=== PATIENT | female | born 1975 | race Caucasian/White ===

== ENCOUNTER 2016-07-04 22:20 | Emergency (ER) | payer OTHER ==
[~2016-07-04] VITALS: Ht 157.5 cm; Wt 69.0 kg
[~2016-07-04 22:20] MED LIST: IBUP-1542 PO; NITR-58 PO; PREN-39 PO
[2016-07-04 22:27] VITALS: Ht 157.5 cm; Wt 69.0 kg
--- NOTE | 2016-07-04 23:54 | ERD ---
ER Documentation Chief Complaint Date/Time DATE: 07/04/16 TIME: 23:52 Chief Complaint sore throat x 3 weeks, HPI 41-year-old female presents here in emergency department for complaints of throat discomfort for 3 weeks. Patient described the pain as sharp pain, 6/10 scale, is worse upon swallowing. Patient felt some difficulty swallowing at times about the pain. Patient denies swallowing any foreign body. Patient denies any stridor ROS All systems reviewed and are negative except as per history of present illness. Medications Home Meds Active Scripts Ibuprofen* (Ibuprofen*) 600 Mg Tablet, 600 MG PO Q6H Y for PAIN, #30 TAB Prov:NELLIE MCCRARY NP 02/23/15 Nitrofurantoin Monohyd Macrocr* (Macrobid*) 100 Mg Capsr, 100 MG PO BID for 7 Days, CAP Prov:DEQUAN DE LA GARZA PA-C 02/21/15 Reported Medications Vits W-Ca,Fe,Fa(<1MG) ( Vitamins) 1 Tab Tablet, PO DAILY 09/23/10 Allergies Allergies: Coded Allergies: No Known Allergy (Verified Allergy, Unknown, 12/22/08) PMhx/Soc Medical and Surgical Hx: pt denies Medical Hx, pt denies Surgical Hx History of Surgery: No Anesthesia Reaction: No Hx Neurological Disorder: No Hx Respiratory Disorders: No Hx Cardiac Disorders: No Hx Psychiatric Problems: No Hx Miscellaneous Medical Probl: No Hx Alcohol Use: No Hx Substance Use: No Hx Tobacco Use: No Smoking Status: Never smoker FmHx Family History: No coronary disease, No diabetes, No other Physical Exam Vitals Vital Signs Date Time Temp Pulse Resp B/P Pulse Ox O2 Delivery O2 Flow Rate FiO2 07/04/16 22:27 99.4 93 20 112/63 100 Physical Exam GENERAL: The patient is well developed and appropriate for usual state of health, in no apparent distress. HEENT: Atraumatic. Ears: Normal tympanic membrane, no erythema or bulging. No ear canal swelling. No ear discharge. Nose: normal nasal turbinates, no erythema or swelling. Normal nasal discharge. Throat: oropharynx erythematous, no tonsillar swelling or tonsillar exudates no. No lymphadenopathy. CHEST: Clear to auscultation bilaterally. There are no rales, wheezes or rhonchi. HEART: Regular rate and rhythm. No murmurs, clicks, rubs or gallops. No S3 or S4. ABDOMEN: Soft, nontender and nondistended. Good bowel sounds. No rebound or guarding. No gross peritonitis. No gross organomegaly or masses. No Noland sign or McBurney point tenderness. BACK: No midline or flank tenderness. EXTREMITIES: Equal pulses bilaterally. There is no peripheral clubbing, cyanosis or edema. No focal swelling or erythema. Full range of motion. Grossly neurovascularly intact. NEURO: Alert and oriented. Cranial nerves 2-12 intact. Motor strength in all 4 extremities with 5/5 strength. Sensation grossly intact. Normal speech and gait. SKIN: There is no apparent rash or petechia. The skin is warm and dry. HEMATOLOGIC AND LYMPHATIC: There is no evidence of excessive bruising or lymphedema. No gross cervical, axillary, or inguinal lymphadenopathy. Results 24 hrs PROCEDURE: Soft tissue neck. CLINICAL INDICATION: Throat discomfort. TECHNIQUE: Two views including AP and lateral views of the soft tissue neck were obtained. COMPARISON: None. FINDINGS: The airways are patent. The epiglottis is not enlarged. Prevertebral soft tissues are within normal limits. There is no radiopaque foreign body or abnormal calcification identified. Osseous structures are unremarkable. IMPRESSION: Unremarkable soft tissue neck. .Edilberto Barclay MD, MD Date Time Electronically viewed and signed by .Edilberto Barclay MD, MD on 07/05/2016 01:20 .T/ CC: NELLIE MCCRARY DENTAL EQUIPMENT REPAIRER Procedures/MDM Medical decision making: Patient symptoms is likely consistent with acute bacterial pharyngitis, most likely strep throat. Low suspicion for peritonsillar abscess, mononucleosis, no symptoms of epiglottitis, laryngitis. X -ray does not show any oral airway obstruction. No oral airway obstruction noted. No symptoms of sepsis at this time. Patient appears well and is hemodynamically stable. Patient was given for amoxicillin, ibuprofen, is advised to follow-up with primary care doctor in 2-3 days for reevaluation of symptoms. Patient is advised to do salt water gargles. Patient is advised to return to emergency department for worsening symptoms. Disposition: Home. Stable. Departure Diagnosis: Primary Impression: Acute bacterial pharyngitis Condition: Stable Patient Instructions: Pharyngitis, Strep (Presumed) NELLIE MCCRARY NP July 04, 2016 23:54
--- NOTE | 2016-07-05 01:20 | RADRPT ---
PROCEDURE: Soft tissue neck. CLINICAL INDICATION: Throat discomfort. TECHNIQUE: Two views including AP and lateral views of the soft tissue neck were obtained. COMPARISON: None. FINDINGS: The airways are patent. The epiglottis is not enlarged. Prevertebral soft tissues are within alonzo l limits. There is no radiopaque foreign body or abnormal calcification identified. Osseous struct ures are unremarkable. IMPRESSION: Unremarkable soft tissue neck. .Edilberto Barclay MD, MD Date Time Electronically viewed and signed by .Edilberto Barclay MD, on 07/05/2016 01:20 .T/
[2016-07-05] MEDS ORDERED: IBUP-1542 PO (01:49)
[2016-07-05] MEDS ORDERED: AMO500 PO (01:49)
== END 2016-07-05 01:58 | disposition home or self-care (01) ==
LOC: FTE 22:20
DX: J02.9 Acute pharyngitis, unspecified (principal)
CPT/HCPCS: 70360

== ENCOUNTER 2016-07-08 19:41 | Emergency (ER) | payer OTHER ==
[~2016-07-08] VITALS: Wt 69.0 kg
[~2016-07-08 19:41] MED LIST changes: +AMO500 PO
--- NOTE | 2016-07-08 20:25 | ERA ---
ER Documentation Chief Complaint Date/Time DATE: 07/08/16 TIME: 20:24 Chief Complaint SORE THROAT AND DIFFICULTY SWALLOWING, NOT BETTER WITH ABX HPI The patient is a 41-year-old female, presenting with sore throat for more than 2 weeks. She was seen in the ER about 4 days ago and treated with amoxicillin and Motrin for pharyngitis. She is not getting better and requests pain medication. She denies fever, has intermittent cough, denies neck pain, chest pain, dyspnea, abdominal pain, vomiting, dysuria, diarrhea. She does not smoke nor drink Past medical/surgical history: None ROS All systems reviewed and are negative except as per history of present illness. Medications Home Meds Active Scripts Guaifenesin-Codeine Phosphate* (Robitussin* AC) 5 Ml Syrup, 10 ML PO Q6H Y for COUGH, #120 ML Prov:HORACIO PERDUE MD 07/08/16 Amoxicillin* (Amoxicillin*) 500 Mg Cap, 500 MG PO TID for 10 Days, CAP Prov:NELLIE MCCRARY NP 07/05/16 Ibuprofen* (Motrin*) 600 Mg Tab, 600 MG PO Q6H Y for PAIN AND OR ELEVATED TEMP, #30 TAB Prov:NELLIE MCCRARY NP 07/05/16 Ibuprofen* (Ibuprofen*) 600 Mg Tablet, 600 MG PO Q6H Y for PAIN, #30 TAB Prov:NELLIE MCCRARY NP 02/23/15 Nitrofurantoin Monohyd Macrocr* (Macrobid*) 100 Mg Capsr, 100 MG PO BID for 7 Days, CAP Prov:DEQUAN DE LA GARZA PA-C 02/21/15 Reported Medications Vits W-Ca,Fe,Fa(<1MG) ( Vitamins) 1 Tab Tablet, PO DAILY 09/23/10 Allergies Allergies: Coded Allergies: No Known Allergy (Verified Allergy, Unknown, 12/22/08) PMhx/Soc Medical and Surgical Hx: pt denies Medical Hx, pt denies Surgical Hx History of Surgery: No Anesthesia Reaction: No Hx Neurological Disorder: No Hx Respiratory Disorders: No Hx Cardiac Disorders: No Hx Psychiatric Problems: No Hx Miscellaneous Medical Probl: No Hx Alcohol Use: No Hx Substance Use: No Hx Tobacco Use: No Smoking Status: Never smoker Physical Exam Vitals Vital Signs Date Time Temp Pulse Resp B/P Pulse Ox O2 Delivery O2 Flow Rate FiO2 07/08/16 19:50 99.3 65 20 115/56 99 Physical Exam Const: No acute distress. Head: Atraumatic. Eyes: Normal Conjunctiva. ENT: Normal External Ears, Nose and Mouth. Oropharynx is within normal limits, no exudate Neck: Full range of motion. No meningismus. Resp: Clear to auscultation bilaterally. Cardio: Regular rate and rhythm, no murmurs. Abd: Soft, non distended, normal bowel sounds, non tender. Skin: No petechiae or rashes. Back: No midline or flank tenderness. Ext: No cyanosis, or edema. Neur: Awake and alert. No focal deficit Psych: Normal Mood and Affect. Procedures/MDM MEDICAL MAKING DECISION: The patient is a 41-year-old female, presenting with acute pharyngitis. She remains well emergency department. The differential diagnoses considered include but are not limited to The differential diagnoses considered include but are not limited to cellulitis, abscess Departure Diagnosis: Primary Impression: Pharyngitis Condition: Good Comments She was discharged with Marely ARCOS I discussed the findings with the patient. I advised the patient to follow-up with the primary physician in about 1-2 days, sooner if needed and return if any concern. HORACIO PERDUE MD July 08, 2016 20:25
[2016-07-08] MEDS ORDERED: UDROBAC PO (20:47)
== END 2016-07-08 20:50 | disposition home or self-care (01) ==
LOC: E/R 19:41
DX: J02.9 Acute pharyngitis, unspecified (principal)
CPT/HCPCS: 99283

== ENCOUNTER 2016-07-17 19:14 | Emergency (ER) | payer OTHER ==
[~2016-07-17] VITALS: Ht 157.5 cm; Wt 62.0 kg
[~2016-07-17 19:14] MED LIST changes: +UDROBAC PO
[2016-07-17 19:58] VITALS: Ht 157.5 cm; Wt 62.0 kg
[2016-07-17] MEDS ORDERED: OMEP20CA16 PO (20:26)
[2016-07-17] MEDS ORDERED: MAG-19 PO (20:26)
--- NOTE | 2016-07-17 20:27 | ERD ---
ER Documentation Chief Complaint Date/Time DATE: 07/17/16 TIME: 20:[address] X2 WEEKS STATES UNABLE TO EAT. HPI 41-year-old female presents to emergency department for complaints of throat discomfort for 2 weeks now, patient has been having this problem chronically, patient was seen by different providers also already given antibiotics, high radiology exam none for further evaluation. Patient continues to have discomfort in the throat. Patient denies any fever or chills. Patient denies any stridor. Patient continues take ibuprofen for pain, describes the pain as burning pain 4/10 scale, and is mildly better after taking ibuprofen. ROS All systems reviewed and are negative except as per history of present illness. Medications Home Meds Active Scripts Omeprazole* (Omeprazole*) 20 Mg Capsule.dr, 20 MG PO DAILY, #30 Prov:NELLIE MCCRARY NP 07/17/16 Magaldrate/Simethicone* (Mylanta*) 355 Ml Susp, 30 ML PO QID Y for GASTROINTESTINAL UPSET, #1 BOTTLE Prov:NELLIE MCCRARY NP 07/17/16 Guaifenesin-Codeine Phosphate* (Robitussin* AC) 5 Ml Syrup, 10 ML PO Q6H Y for COUGH, #120 ML Prov:HORACIO PERDUE MD 07/08/16 Amoxicillin* (Amoxicillin*) 500 Mg Cap, 500 MG PO TID for 10 Days, CAP Prov:NELLIE MCCRARY NP 07/05/16 Ibuprofen* (Motrin*) 600 Mg Tab, 600 MG PO Q6H Y for PAIN AND OR ELEVATED TEMP, #30 TAB Prov:NELLIE MCCRARY NP 07/05/16 Ibuprofen* (Ibuprofen*) 600 Mg Tablet, 600 MG PO Q6H Y for PAIN, #30 TAB Prov:NELLIE MCCRARY NP 02/23/15 Nitrofurantoin Monohyd Macrocr* (Macrobid*) 100 Mg Capsr, 100 MG PO BID for 7 Days, CAP Prov:DEQUAN DE LA GARZA PA-C 02/21/15 Reported Medications Vits W-Ca,Fe,Fa(<1MG) ( Vitamins) 1 Tab Tablet, PO DAILY 09/23/10 Allergies Allergies: Coded Allergies: No Known Allergy (Verified , 07/17/16) PMhx/Soc Medical and Surgical Hx: pt denies Medical Hx, pt denies Surgical Hx History of Surgery: No Anesthesia Reaction: No Hx Neurological Disorder: No Hx Respiratory Disorders: No Hx Cardiac Disorders: No Hx Psychiatric Problems: No Hx Miscellaneous Medical Probl: No Hx Alcohol Use: No Hx Substance Use: No Hx Tobacco Use: No FmHx Family History: No coronary disease, No diabetes, No other Physical Exam Vitals Vital Signs Date Time Temp Pulse Resp B/P Pulse Ox O2 Delivery O2 Flow Rate FiO2 07/17/16 19:58 98.0 96 20 122/71 99 Physical Exam GENERAL: The patient is well developed and appropriate for usual state of health, in no apparent distress. CHEST: Clear to auscultation bilaterally. There are no rales, wheezes or rhonchi. HEART: Regular rate and rhythm. No murmurs, clicks, rubs or gallops. No S3 or S4. ABDOMEN: Soft, nontender and nondistended. Good bowel sounds. No rebound or guarding. No gross peritonitis. No gross organomegaly or masses. No Noland sign or McBurney point tenderness. BACK: No midline or flank tenderness. EXTREMITIES: Equal pulses bilaterally. There is no peripheral clubbing, cyanosis or edema. No focal swelling or erythema. Full range of motion. Grossly neurovascularly intact. NEURO: Alert and oriented. Cranial nerves 2-12 intact. Motor strength in all 4 extremities with 5/5 strength. Sensation grossly intact. Normal speech and gait. SKIN: There is no apparent rash or petechia. The skin is warm and dry. HEMATOLOGIC AND LYMPHATIC: There is no evidence of excessive bruising or lymphedema. No gross cervical, axillary, or inguinal lymphadenopathy. Results 24 hrs PROCEDURE: Soft tissue neck. CLINICAL INDICATION: Throat discomfort. TECHNIQUE: Two views including AP and lateral views of the soft tissue neck were obtained. COMPARISON: None. FINDINGS: The airways are patent. The epiglottis is not enlarged. Prevertebral soft tissues are within normal limits. There is no radiopaque foreign body or abnormal calcification identified. Osseous structures are unremarkable. IMPRESSION: Unremarkable soft tissue neck. .Edilberto Barclay, MD, MD Date Time Electronically viewed and signed by .Edilberto Barclay MD, MD on 07/05/2016 01:20 .T/ CC: NELLIE MCCRARY NP Procedures/MDM Medical decision making: Patient symptoms are nonspecific at this time, further evaluation with EGD by ENT specialist or GI specialist for further evaluation is necessary. Low suspicion for peritonsillar abscess, mononucleosis, no symptoms of epiglottitis, laryngitis. No oral airway obstruction noted. No symptoms of sepsis at this time. Patient appears well and is hemodynamically stable. Patient was given for Mylanta and omeprazole, is advised to follow-up with primary care doctor in 2-3 days for reevaluation of symptoms. Patient is advised to do salt water gargles. Patient is advised to return to emergency department for worsening symptoms. Disposition: Home. Stable. Departure Diagnosis: Primary Impression: Throat discomfort Condition: Stable Patient Instructions: Self-Care for Sore Throats Additional Instructions: see ENT specialist / GI for possible endoscopy for further evaluation of throat NELLIE MCCRARY NP Jul 17, 2016 20:27
== END 2016-07-17 21:06 | disposition home or self-care (01) ==
LOC: E/R 19:14
DX: R07.0 Pain in throat (principal)
CPT/HCPCS: 99283

== ENCOUNTER 2016-07-23 16:06 | Emergency (ER) | payer OTHER ==
[~2016-07-23] VITALS: Ht 154.9 cm; Wt 60.0 kg
[~2016-07-23 16:06] MED LIST changes: +MAG-19 PO; +OMEP20CA16 PO
[2016-07-23 16:08] VITALS: Ht 154.9 cm; Wt 60.0 kg
[2016-07-23 16:40] LABS: URINE BLOOD (Dip) POC 1+ (NEGATIVE)
--- NOTE | 2016-07-23 17:50 | RADRPT ---
PROCEDURE: Retroperitoneal US. CLINICAL INDICATION: Flank pain TECHNIQUE: Multiple sonographic images of the kidneys and retroperitoneum were obtained. The imag es were reviewed on a PACS workstation. COMPARISON: No prior studies are available for comparison. FINDINGS: The kidneys are normal in size, contour, cortical thickness and cortical echogenicity. The right kidney measures 9.5 cm. The left kidney measures 10.5 cm. No kidney stones are visualized. There is no evidence for hydronephrosis. The urinary bladder is decompressed and not well seen. RPTAT: AA IMPRESSION: Unremarkable retroperitoneal ultrasound. .Alan Beasley MD, Date Time Electronically viewed and signed by .Alan Beasley MD, on 07/23/2016 17:50 .S/
--- NOTE | 2016-07-23 18:05 | RADRPT ---
PROCEDURE: US Pelvis. CLINICAL INDICATION: Pelvic pain TECHNIQUE: Multiple sonographic images of the pelvis were obtained utilizing a transabdominal and endovaginal technique. The images were reviewed on a PACS workstation. COMPARISON: February 23, 2015, February 21, 2015, February 19, 2015 FINDINGS: The uterus is anteverted and measures 7.6 x 5 x 4.0 cm. The endometrial echo complex is normal and m easures 6 mm. No uterine fibroids are present. There is no evidence for free fluid. The ovaries were not visualized. No adnexal masses are noted. IMPRESSION: Unremarkable pelvic ultrasound. RPTAT: EE .Sharla Su MD, MD Date Time Electronically viewed and signed by .Sharla Su MD, MD on 07/23/2016 18:05 .F/
[2016-07-23] MEDS ORDERED: ELEC100080 PO (18:42)
[2016-07-23] MEDS ORDERED: IBUP-1542 PO (18:42)
[2016-07-23 18:54] VITALS: BP 106/65; PULSE 98; RESP 16; TEMP 98.1
--- NOTE | 2016-07-23 19:11 | ERD ---
ER Documentation Chief Complaint Date/Time DATE: 07/23/16 TIME: 18:53 Chief Complaint Complains of abdominal pain x 3 days HPI 41-year-old female complaining of pelvic pain 3-4 days. Patient reports diarrhea today. She had 6 episodes of nonbloody diarrhea, last episode was 1 hour ago. She also has dysuria. She had UTIs in the past, and states that this feels the same as prior UTI. Denies fever or chills. Denies vomiting. Denies cough or runny nose. Patient also complains of sore throat for last 3 weeks. She has severe multiple times for the sore throat. She states the pain is deep down in the throat. She is to have trouble eating any solid food. ROS All systems reviewed and are negative except as per history of present illness. Medications Home Meds Active Scripts Electrolyte,Oral (Pedialyte) 1,000 Ml Solution, 100 ML PO Q6 Y for DIARRHEA, # 1000 ML Prov:KRISHAN RECINOS NP 07/23/16 Ibuprofen* (Motrin*) 600 Mg Tab, 600 MG PO Q6H Y for PAIN AND OR ELEVATED TEMP, #30 TAB Prov:KRISHAN RECINOS NP 07/23/16 Omeprazole* (Omeprazole*) 20 Mg Capsule.dr, 20 MG PO DAILY, #30 Prov:NELLIE MCCRARY NP 07/17/16 Magaldrate/Simethicone* (Mylanta*) 355 Ml Susp, 30 ML PO QID Y for GASTROINTESTINAL UPSET, #1 BOTTLE Prov:NELLIE MCCRARY NP 07/17/16 Guaifenesin-Codeine Phosphate* (Robitussin* AC) 5 Ml Syrup, 10 ML PO Q6H Y for COUGH, #120 ML Prov:HORACIO PERDUE MD 07/08/16 Amoxicillin* (Amoxicillin*) 500 Mg Cap, 500 MG PO TID for 10 Days, CAP Prov:NELLIE MCCRARY NP 07/05/16 Ibuprofen* (Motrin*) 600 Mg Tab, 600 MG PO Q6H Y for PAIN AND OR ELEVATED TEMP, #30 TAB Prov:NELLIE MCCRARY NP 07/05/16 Ibuprofen* (Ibuprofen*) 600 Mg Tablet, 600 MG PO Q6H Y for PAIN, #30 TAB Prov:HUMBERTONELLIE RAMIREZ JACE PaulaAdrian ORGANIZATIONAL PSYCHOLOGIST 02/23/15 Nitrofurantoin Monohyd Macrocr* (Macrobid*) 100 Mg Capsr, 100 MG PO BID for 7 Days, CAP Prov:DEQUAN DE LA GARZA PA-C 02/21/15 Reported Medications Vits W-Ca,Fe,Fa(<1MG) ( Vitamins) 1 Tab Tablet, PO DAILY 09/23/10 Allergies Allergies: Coded Allergies: No Known Allergy (Verified , 07/23/16) PMhx/Soc Medical and Surgical Hx: pt denies Medical Hx History of Surgery: No Anesthesia Reaction: No Hx Neurological Disorder: No Hx Respiratory Disorders: No Hx Cardiac Disorders: No Hx Psychiatric Problems: No Hx Miscellaneous Medical Probl: No Hx Alcohol Use: No Hx Substance Use: No Hx Tobacco Use: No Smoking Status: Unknown if ever smoked Physical Exam Vitals Vital Signs Date Time Temp Pulse Resp B/P Pulse Ox O2 Delivery O2 Flow Rate FiO2 07/23/16 16:08 99.4 122 20 109/57 99 Physical Exam General: Well-developed, well-nourished, conscious and coherent, in no distress Skin: Warm and dry without rash, good texture and turgor Head: Normocephalic without evidence of trauma Eyes: Sclera and conjunctivae normal; pupils equal, round, and reactive to light; extraocular movements are intact Ears: Canals are patent. Tympanic membranes are clear Nose/Face: Without rhinorrhea Mouth/throat: Mucous membranes are moist. Posterior pharynx clear without erythema or exudates Neck: Supple without meningismus or adenopathy. Carotids are equal. Trachea midline. No bruits or JVD Chest: Normal AP diameter. Good expansion without retractions. Nontender. Lungs are clear to auscultate bilaterally with good tidal volume Heart: Regular rate and rhythm. No murmur, rub, or gallops heard Abdomen: Soft and nontender without masses, guarding, or rebound. Bowel sounds are active. No hepatosplenomegaly Back: Without spinal or CVA tenderness Pelvis: Suprapubic tenderness Extremities: Full range of motion. Good strength bilaterally. No clubbing, cyanosis, or edema. Peripheral pulses are intact. Sensation intact Neuro: Alert and oriented 4, GCS 15. Cranial nerves grossly intact. Motor and sensory exams nonfocal. Moves all extremities. Speech clear. Gait normal Results 24 hrs Laboratory Tests Test 07/23/16 16:44 Bedside Urine pH (LAB) 6.0 Bedside Urine Protein (LAB) 3+ Bedside Urine Glucose (UA) Negative Bedside Urine Ketones (LAB) 4+ Bedside Urine Blood 1+ Bedside Urine Nitrite (LAB) Negative Bedside Urine Leukocyte Esterase (L Negative PROCEDURE: US Pelvis. CLINICAL INDICATION: Pelvic pain TECHNIQUE: Multiple sonographic images of the pelvis were obtained utilizing a transabdominal and endovaginal technique. The images were reviewed on a PACS workstation. COMPARISON: February 23, 2015, February 21, 2015, February 19, 2015 FINDINGS: The uterus is anteverted and measures 7.6 x 5 x 4.0 cm. The endometrial echo complex is normal and measures 6 mm. No uterine fibroids are present. There is no evidence for free fluid. The ovaries were not visualized. No adnexal masses are noted. IMPRESSION: Unremarkable pelvic ultrasound. RPTAT: EE .Sharla Su MD, Date Time Electronically viewed and signed by .Sharla Su MD, MD on 07/23/2016 18:05 .F/ CC: KRISHAN RECINOS ORGANIZATIONAL PSYCHOLOGIST PROCEDURE: Retroperitoneal US. CLINICAL INDICATION: Flank pain TECHNIQUE: Multiple sonographic images of the kidneys and retroperitoneum were obtained. The images were reviewed on a PACS workstation. COMPARISON: No prior studies are available for comparison. FINDINGS: The kidneys are normal in size, contour, cortical thickness and cortical echogenicity. The right kidney measures 9.5 cm. The left kidney measures 10.5 cm. No kidney stones are visualized. There is no evidence for hydronephrosis. The urinary bladder is decompressed and not well seen. RPTAT: AA IMPRESSION: Unremarkable retroperitoneal ultrasound. .Alan Beasley MD, MD Date Time Electronically viewed and signed by .Alan Beasley MD, on 07/23/2016 17: 50 .S/ CC: KRISHAN RECINOS. ORGANIZATIONAL PSYCHOLOGIST Procedures/MDM Urine dip is negative for infection. However, it showed 1+ blood. Concerning for urolithiasis. Renal ultrasound negative for hydronephrosis or other obstructive urolithiasis. Pelvic ultrasound also obtained, it was unremarkable. I suspect because of patient's abdominal pain and diarrhea is from a viral origin. Low suspicion for acute appendicitis, cholecystitis, pancreatitis, or other acute abdomen. As for patient's throat pain, I advised her to follow-up with her PCP for ENT referral since he has been ongoing for more than 3 weeks. Patient appears well, stable for discharge and outpatient management. Medical decision making shared with patient and family. Education provided to patient and family. Patient and family expressed understanding of the plan. Medications on discharge: Ibuprofen, Pedialyte. Follow-up: Primary care provider in 2-3 days or return to ED if worse. Departure Diagnosis: Primary Impression: Dysuria Additional Impressions: Throat pain Diarrhea Diarrhea type: unspecified type Qualified Code: R19.7 - Diarrhea, unspecified type Condition: Stable Patient Instructions: Dysuria, Treating Diarrhea Additional Instructions: Call your primary care doctor TOMORROW for an appointment during the next 2-3 days.See the doctor sooner or return here if your condition worsens before your appointment time. Ask your doctor for a referral to ENT specialist to evaluate your throat pain. KRISHAN RECINOS NP Jul 23, 2016 19:05
== END 2016-07-23 18:56 | disposition home or self-care (01) ==
LOC: FTE 16:06
DX: R30.0 Dysuria (principal); R07.0 Pain in throat; R19.7 Diarrhea, unspecified
CPT/HCPCS: 76775; 76830; 76856; 81003; 87591; Z7502